=== PATIENT | male | born 1950 ===

== ENCOUNTER 2019-08-19 15:18 | Outpatient (REF) | payer MEDICARE, SELFPAY ==
[2019-08-19 20:46] LABS: ALT 13 U/L (16-63); AST 15 U/L (15-37); Albumin 3.7 g/dL (3.4-5.0); Alkaline Phosphatase 98 U/L (46-116); Anion Gap 9.3 mmol/L (3-11); BUN 11 mg/dL (7-18); Bilirubin, Total 0.3 mg/dL (0.2-1.0); CO2 28.7 mmol/L (21.0-32.0); Calcium 9.1 mg/dL (8.5-10.1); Chloride 103 mmol/L (98-107); Glucose 77 mg/dL (70-100); Potassium 4.4 mmol/L (3.5-5.1); Sodium 141 mmol/L (136-145); Total Protein 6.8 g/dL (6.4-8.2)
[2019-08-19 20:54] LABS: COMMENT (LAB VIEW ONLY) 23.83 mg/dL; Microalb ug/mg Crea 10.5 ug/mg Cr
[2019-08-20 08:31] LABS: Calculated LDL 104 mg/dL; Cholesterol 168 mg/dL (50-200); HDL Cholesterol 47 mg/dL (40-60); Triglyceride 85 mg/dL (30-150)
== END 2019-08-19 15:38 ==
LOC: NCHCN 15:18
PROVIDERS: PCP Nurse Practitioner Family; Visit Provider Nurse Practitioner Family
DX: I10 Essential (primary) hypertension (principal); I70.1 Atherosclerosis of renal artery
CPT/HCPCS: 80053; 80061; 82043; 82570